=== PATIENT | male | born 1960 | race Caucasian/White ===

== ENCOUNTER 2018-11-23 11:25 | Outpatient (RCR) | payer BC ==
[2018-11-05 12:56] VITALS: BP 117/77
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
[~2018-11-23 11:25] MED LIST: ALB18R INH; ALBU2.5V36 IH; ALBU2.5V36 INH; ALBU8.5H IH; ALBUTEROL INHALER INH; APAP/CODEINE; ASPI-1471 PO; AZEL23SP NS; AZIT-1 PO; BACL-1 PO; BUDE0.5A6 IH; BUDE10.2 INH; BUPR-124 PO; CHOL10005 PO; CHOLESTEROL MED; CITA-141 PO; CITA-145 PO; CODE118S5 PO; DULERAPT IH; DULERAPT INH; ENOX100D7 SQ; FEXO180T87 PO; FLAX100041 PO; FLU IM; HYDR-653 PO; HYDR25CA13 PO; IPRA3AMP10 IH; KRIL500C2 PO; LEVO-85 PO; LOR5/325 PO; MEPO100V SC; METH-318 PO; MOME220A3 INH; MON10 PO; MONT10TA PO; MONT10TA4 PO; MULT1CAP59 PO; NIAC100T35 PO; OMEP40CA48 PO; PNEU0.5D3 IM; PRE20 PO; PRED20TA6 PO; QUET50TA PO; RANI-54 PO; SILD50TA5 PO; SIMV-42 PO; SIMV-49 PO; SIMV-54 PO; SIMVASTATIN; SODI3VIA11 IH; TRAZ50TA52 PO; VITA-175 PO; WAR5 PO; [UNRECOGNIZED DRUG - CODE]; [UNRECOGNIZED DRUG - CODE] PO; [UNRECOGNIZED DRUG - CODE] PO
[2018-11-23 11:54] VITALS: BP 117/75
[2018-11-23 12:02] LABS: PLATELET COUNT, AUTOMATED 284 K/uL (150-450)
--- NOTE | 2018-12-18 16:45 | NUR ---
Nurse called patient and reviewed lab results from November 23. Nurse instructed the patient that per Dr. Fowler he did not require any phlebotomy at this point and that he could follow up in 4 months with lab work. The patient verbalized understanding of all instructions given.
== END 2019-01-27 15:48 | disposition home or self-care (01) ==
LOC: SPU 11:25
PROVIDERS: ATTEND Internal Medicine Hematology
DX: E83.19 Other disorders of iron metabolism (principal); Z79.899 Other long term (current) drug therapy
CPT/HCPCS: 36415; 81256; 82728; 83540; 83550; 85025; 99202